=== PATIENT | male | born 1960 | race African-American/Black ===

== ENCOUNTER 2022-05-19 09:17 | Emergency (ER) | payer MEDICARE, OTHER ==
[~2022-05-19] VITALS: Ht 177.8 cm; Wt 106.0 kg
[2022-05-19 10:22] VITALS: BP 156/98
[2022-05-19 11:57] LABS: Basophils # (auto) 0 10 ^3/uL (0-0.2); Basophils % (auto) 0.4 % (0.0-2.0); Eosinophils # (auto) 0 10 ^3/uL (0-0.8); Eosinophils % (auto) 0.8 % (0.0-7.0); Hematocrit 49.4 % (41.0-53.0); Lymphocytes # (auto) 1.3 10 ^3/uL (0.4-5.4); Lymphocytes % (auto) 26.3 % (10.0-50.0); Mean Corpuscular Hemoglobin 29.6 pg (28.0-32.0); Mean Corpuscular Hgb Conc. 32.4 g/dL (32.0-36.0); Mean Corpuscular Volume 91.4 fL (80.0-100.0); Monocytes # (auto) 0.3 10 ^3/uL (0-1.3); Neutrophils # (auto) 3.2 10 ^3/uL (1.6-8.6); Neutrophils % (auto) 65.5 % (37.0-80.0); Nucleated Red Blood Cells % 0.1 %; Red Cell Distribution Width 15.2 % (11.8-14.3)
== END 2022-05-19 12:49 | disposition home or self-care (01) ==
LOC: ER 09:17
DX: R04.0 Epistaxis (principal)
CPT/HCPCS: 30901; 36415; 85025

== ENCOUNTER 2022-05-21 08:48 | Emergency (ER) | payer MEDICARE, OTHER ==
[~2022-05-21] VITALS: Ht 177.8 cm; Wt 105.3 kg
[2022-05-21 09:02] VITALS: BP 135/95
== END 2022-05-21 09:43 | disposition home or self-care (01) ==
LOC: ER 08:48
DX: Z09 Encounter for follow-up examination after completed treatment for conditions other than malignant neoplasm (principal)